=== PATIENT | female | born 1965 | race Caucasian/White ===

== ENCOUNTER 2016-12-09 08:22 | Emergency (ER) | payer OTHER ==
[~2016-12-09] VITALS: Ht 160 cm; Wt 74.8 kg
[2016-12-09] MEDS ORDERED: IBUPROFEN 600 MG TABLET PO ONE ×2 (08:49→09:00)
[2016-12-09 09:38] VITALS: BP 120/78
== END 2016-12-09 10:11 | disposition home or self-care (01) ==
LOC: ER 08:26
DX: S40.022A Contusion of left upper arm, initial encounter (principal); S80.12XA Contusion of left lower leg, initial encounter; S30.1XXA Contusion of abdominal wall, initial encounter; V43.52XA Car driver injured in collision with other type car in traffic accident, initial encounter; Y93.89 Activity, other specified; Y92.89 Other specified places as the place of occurrence of the external cause; Y99.9 Unspecified external cause status
CPT/HCPCS: 99283; A4606; Z7610